=== PATIENT | female | born 1955 | race Caucasian/White ===

== ENCOUNTER 2020-09-04 20:19 | Inpatient (IN) | payer SELFPAY ==
[2020-09-04 21:18] LABS: ALT (SGPT) 15 U/L (8-55); AST (SGOT) 23 U/L (5-34); Albumin 3.1 g/dL (3.4-4.8); Alkaline Phosphatase 253 U/L (40-110); Anion Gap 18 mmol/L (10-20); BUN (Urea Nitrogen) 17 mg/dL (9.8-20.1); Bilirubin, Total 4.3 mg/dL (0.2-1.2); Calc. Creatinine Clearance 0 mL/min (70-130); Calcium 9.2 mg/dL (7.8-10.44); Carbon Dioxide 16 mmol/L (23-31); Chloride 103 mmol/L (98-107); Globulin 2.5 g/dL (2.4-3.5); Glucose 81 mg/dL (80-115); Protein, Total 5.6 g/dL (5.8-8.1); Sodium 134 mmol/L (136-145)
[2020-09-04] MEDS ORDERED: cefTRIAXone\\ROCEPHIN 2 GM VIAL ONE (21:18)
[2020-09-04] MEDS ORDERED: Acetaminophen 500 MG TAB ONE (21:18)
[2020-09-04 21:22] LABS: Hemoglobin 15.2 g/dL (12.0-15.5); Mean Corpuscular HGB CONC 33.3 g/dL (32.0-36.0); Mean Corpuscular Hemoglobin 28.4 pg (27.0-33.0); Mean Corpuscular Volume 85.1 fl (81.6-98.3); Platelet Count 67 10x3/uL (150-450); RBC Distribution Width 13.2 % (11.5-14.5); Red Blood Cell (RBC) Count 5.36 10x6/uL (3.90-5.03)
[2020-09-04 21:28] LABS: Potassium 2.6 mmol/L (3.5-5.1)
[2020-09-04] MEDS ORDERED: Potassium Chloride 20 MEQ TAB ONE (21:44)
[2020-09-04] MEDS ORDERED: Aspirin 325 MG TAB ONE (21:57)
[2020-09-04] MEDS ORDERED: Calcium Carbonate 500 MG ChewTAB PO PRN (22:02)
[2020-09-04] MEDS ORDERED: Ondansetron PF 4 MG/2 ML Vial IVP PRN (22:02)
[2020-09-04] MEDS ORDERED: Senokot S 8.6-50 MG TAB PO PRN (22:02)
[2020-09-04] MEDS: Sodium Chloride 0.9% 1,000 ML IV SCH (23:00)
[2020-09-04 23:43] LABS: Band 30 % (5-11); Lymphocytes 4 % (21-51); Metamyelocyte 1 % (0-0); Monocytes 1 % (0-10)
[2020-09-04 23:57] LABS: Neutrophil 64 % (42-75)
[2020-09-04] MEDS ORDERED: Pantoprazole 40 MG VIAL IVP SCH (23:59)
[2020-09-04] MEDS ORDERED: Cefepime 1 GM in Sodium Chloride 0.9% 100 ML IVPB SCH (23:59)
[2020-09-05] MEDS ORDERED: Potassium Chloride 20 MEQ TAB ONE (00:09)
[2020-09-05] MEDS ORDERED: Cefepime 1 GM VIAL ONE (00:09)
[2020-09-05] MEDS ORDERED: Pantoprazole 40 MG VIAL ONE (00:10)
[2020-09-05 00:11] LABS: Dohle Bodies MODERATE; Toxic Granulation SLIGHT; Vacuoles MODERATE
[2020-09-05 00:12] LABS: Large Platelets MODERATE; Platelet Morphology Comment Appears Decreased; Small Platelets SLIGHT
[2020-09-05 00:13] LABS: MDiff Complete? YES; Manual Diff?? YES
[2020-09-05 00:14] LABS: RBC Morphology Normal
[2020-09-05] MEDS: Potassium Chloride 20 MEQ TAB PO SCH ×4 (00:41→06:31)
[2020-09-05 01:13] LABS: Bilirubin 1+ (Negative); Blood, Urine 150 (Negative); Clarity Slightly Cloudy (Clear); Glucose, Urine (Dipstick) Normal (Negative); Ketone, Urine 5 mg/dL (Negative); Leukocyte 100 (Negative); Nitrite Positive (Negative); Protein, Urine (Dipstick) 100 mg/dl (Neg-Trace)
[2020-09-05] MEDS ORDERED: Albumin 25% 100 ML ONE (01:16)
[2020-09-05 01:24] LABS: Mucous/LPF 1+ LPF (<2+); WBC/HPF 21-50 HPF (0-3)
[2020-09-05 01:25] LABS: Bacteria/HPF 4+ HPF (None Seen)
[2020-09-05] MEDS ORDERED: Albumin 25% 25 GM/100 ML BOT IVPB SCH (01:45)
[2020-09-05 02:07] LABS: Lactic Acid 3.7 mmol/L (0.5-2.2)
[2020-09-05 02:39] VITALS: BMI 35.3
[2020-09-05] MEDS ORDERED: Vancomycin HCl 750 MG in Sodium Chloride 0.9% 250 ML 250 ML IVPB SCH (03:00)
[2020-09-05 04:01] LABS: Lactic Acid 3.5 mmol/L (0.5-2.2)
[2020-09-05 04:17] LABS: ALT (SGPT) 16 U/L (8-55); AST (SGOT) 29 U/L (5-34); Alkaline Phosphatase 90 U/L (40-110); Anion Gap 16 mmol/L (10-20); BUN (Urea Nitrogen) 19 mg/dL (9.8-20.1); Bilirubin, Total 3.2 mg/dL (0.2-1.2); Calc. Creatinine Clearance 57 mL/min (70-130); Carbon Dioxide 14 mmol/L (23-31); Cardiac Risk 4.1 (Less than 4.5); Chloride 108 mmol/L (98-107); Cholesterol 49 mg/dl (< 200 Desired); Globulin 1.9 g/dL (2.4-3.5); Glucose 85 mg/dL (80-115); HDL Cholesterol 12 mg/dL (>60 Neg Risk); LDL Cholesterol, Calculated 20 mg/dL; Magnesium 1.4 mg/dL (1.6-2.6); Protein, Total 4.9 g/dL (5.8-8.1); Sodium 135 mmol/L (136-145); Triglycerides 84 mg/dL (Less than 150)
[2020-09-05 04:22] LABS: Potassium 2.9 mmol/L (3.5-5.1)
[2020-09-05 04:40] LABS: CKMB 3.7 ng/mL (0-6.6)
[2020-09-05 04:57] LABS: Hemoglobin 12.9 g/dL (12.0-15.5); Mean Corpuscular HGB CONC 34.4 g/dL (32.0-36.0); Mean Corpuscular Hemoglobin 29.2 pg (27.0-33.0); Mean Corpuscular Volume 84.8 fl (81.6-98.3); Mean Platelet Volume 11.6 fl (7.4-10.4); Platelet Count 25 10x3/uL (150-450); RBC Distribution Width 13.4 % (11.5-14.5); Red Blood Cell (RBC) Count 4.42 10x6/uL (3.90-5.03); White Blood Cell (WBC) Count 17.8 10x3/uL (3.5-10.5)
[2020-09-05 05:14] LABS: Band 26 % (5-11); Lymphocytes 2 % (21-51); Metamyelocyte 6 % (0-0); Monocytes 4 % (0-10); Myelocyte 1 % (0-0)
[2020-09-05 05:15] LABS: Neutrophil 61 % (42-75)
[2020-09-05 05:16] LABS: Dohle Bodies SLIGHT; Platelet Clumps SLIGHT; Toxic Granulation SLIGHT; Vacuoles MARKED
[2020-09-05 05:17] LABS: Large Platelets SLIGHT; Platelet Morphology Comment Appears Decreased
[2020-09-05 05:25] LABS: MDiff Complete? YES; Manual Diff?? YES; RBC Morphology Normal
[2020-09-05] MEDS ORDERED: Magnesium 2 GM/50 ML 2 GM in Premix Bag 1 BAG IVPB SCH (05:30)
[2020-09-05] MEDS: Meropenem 500 MG in Sodium Chloride 0.9% 100 ML IVPB SCH ×2 (08:23→16:26)
[2020-09-05] MEDS: Pantoprazole 40 MG VIAL IVP SCH ×2 (08:23→20:51)
[2020-09-05] MEDS ORDERED: Cefepime 1 GM in Sodium Chloride 0.9% 100 ML IVPB SCH (09:00)
[2020-09-05] MEDS: Aspirin 81 mg Enteric Coated Tablet PO SCH (09:21)
[2020-09-05 10:32] LABS: Anion Gap 16 mmol/L (10-20)
[2020-09-05] MEDS: Sodium Chloride 0.9% 1,000 ML IV SCH ×2 (12:16→16:50)
[2020-09-05 13:43] LABS: BUN (Urea Nitrogen) 20 mg/dL (9.8-20.1); Calc. Creatinine Clearance 57 mL/min (70-130); Calcium 8.1 mg/dL (7.8-10.44); Carbon Dioxide 17 mmol/L (23-31); Chloride 108 mmol/L (98-107); Glucose 80 mg/dL (80-115); Potassium 4.5 mmol/L (3.5-5.1); Sodium 136 mmol/L (136-145)
[2020-09-05] MEDS ORDERED: Sodium Chloride 0.9% 1,000 ML IV SCH (13:45)
[2020-09-05 15:10] LABS: SARS-CoV-2 PCR by NAA Not Detected (NotDetected)
[2020-09-05] MEDS: Acetaminophen 325 MG TAB PO PRN (16:27)
[2020-09-05] MEDS ORDERED: Iopamidol 15 ML ONE (17:55)
[2020-09-05] MEDS ORDERED: Fentanyl 100 MCG/2 ML VIAL ONE (18:13)
[2020-09-05] MEDS ORDERED: PROPOFOL 20 ML ONE (18:13)
[2020-09-05] MEDS ORDERED: Rocuronium Bromide 10 MG/ML (10ML VIAL) ONE (18:13)
[2020-09-05] MEDS ORDERED: Lidocaine 1% PF 5 ML VIAL ONE (18:13)
[2020-09-05] MEDS ORDERED: ePHEDrine 50 MG/ML VIAL ONE (18:14)
[2020-09-05] MEDS ORDERED: PHENYLEPHRINE-NS 100 MCG/ML 10 ML SYRINGE ONE (18:14)
[2020-09-05] MEDS ORDERED: Glycopyrrolate 0.2 MG/ML 5 ML SYRINGE ONE (18:14)
[2020-09-05] MEDS ORDERED: Dexamethasone 4 mg/ml Vial ONE (18:14)
[2020-09-05] MEDS ORDERED: Ondansetron PF 4 MG/2 ML Vial ONE (18:14)
[2020-09-05] MEDS ORDERED: Morphine 1 ML ONE (18:51)
[2020-09-05] MEDS ORDERED: Metoclopramide HCl 10 MG/2 ML VIAL ONE (19:11)
[2020-09-05] MEDS ORDERED: B & O ONE (19:23)
[2020-09-05] MEDS ORDERED: Midazolam HCl 2 mg/2 ml Vial ONE (19:48)
[2020-09-05] MEDS: Vancomycin HCl 1 GM in Sodium Chloride 0.9% 250 ML 250 ML IVPB SCH (20:51)
[2020-09-06] MEDS: Meropenem 500 MG in Sodium Chloride 0.9% 100 ML IVPB SCH ×3 (00:30→16:05)
[2020-09-06] MEDS: Sodium Chloride 0.9% 1,000 ML IV SCH ×4 (00:30→23:40)
[2020-09-06 03:57] LABS: Hemoglobin 12.2 g/dL (12.0-15.5); Mean Corpuscular HGB CONC 32.1 g/dL (32.0-36.0); Mean Corpuscular Hemoglobin 28.6 pg (27.0-33.0); Mean Corpuscular Volume 89.2 fl (81.6-98.3); Mean Platelet Volume 12.7 fl (7.4-10.4); Platelet Count 55 10x3/uL (150-450); RBC Distribution Width 14.6 % (11.5-14.5); Red Blood Cell (RBC) Count 4.26 10x6/uL (3.90-5.03)
[2020-09-06 04:11] LABS: Anion Gap 15 mmol/L (10-20); BUN (Urea Nitrogen) 23 mg/dL (9.8-20.1); Calc. Creatinine Clearance 70 mL/min (70-130); Calcium 7.8 mg/dL (7.8-10.44); Carbon Dioxide 11 mmol/L (23-31); Chloride 115 mmol/L (98-107); Glucose 73 mg/dL (80-115); Magnesium 1.9 mg/dL (1.6-2.6); Potassium 4.7 mmol/L (3.5-5.1); Sodium 136 mmol/L (136-145)
[2020-09-06 06:48] LABS: Band 32 % (5-11); Lymphocytes 4 % (21-51); Monocytes 4 % (0-10); Neutrophil 60 % (42-75)
[2020-09-06 06:50] LABS: Anisocytosis SLIGHT = 6-15 cells (100X) (0-5/hpf); Microcytosis SLIGHT = 6-15 cells (100X) (0-5/hpf)
[2020-09-06 06:52] LABS: Burr Cells SLIGHT = 2-5 cells (100X) (0-1/hpf); Dohle Bodies MODERATE; Toxic Granulation SLIGHT; Vacuoles MARKED
[2020-09-06 06:53] LABS: Large Platelets MODERATE; Platelet Clumps SLIGHT; Platelet Morphology Comment Appears Decreased
[2020-09-06 06:54] LABS: Manual Diff?? YES
[2020-09-06 06:55] LABS: MDiff Complete? YES
[2020-09-06] MEDS: Aspirin 81 mg Enteric Coated Tablet PO SCH (07:52)
[2020-09-06] MEDS: Pantoprazole 40 MG VIAL IVP SCH ×2 (07:52→19:54)
[2020-09-06] MEDS ORDERED: Trospium 20 MG TAB PO SCH (09:00)
[2020-09-06] MEDS ORDERED: Estrogens, Conjugated 30 GM TUBE TOP SCH (09:45)
[2020-09-06] MEDS: Fluconazole In NaCl,Iso-Osm 400 MG in Premix Bag 1 BAG IVPB SCH (09:51)
[2020-09-06] MEDS: traMADol HCl 50 MG TAB PO PRN ×2 (16:05→23:40)
[2020-09-06] MEDS: Vancomycin HCl 1 GM in Sodium Chloride 0.9% 250 ML 250 ML IVPB SCH (19:54)
[2020-09-06] MEDS: Estrogens, Conjugated 30 GM TUBE TOP SCH (19:55)
[2020-09-06 20:30] LABS: Vancomycin, Trough 10.2 ug/mL
[2020-09-06] MEDS: Acetaminophen 325 MG TAB PO PRN (23:40)
[2020-09-07] MEDS: Meropenem 500 MG in Sodium Chloride 0.9% 100 ML IVPB SCH ×2 (00:23→08:25)
[2020-09-07 03:37] LABS: #Eosinphils 0.1 10x3/uL (0.0-0.5); #Monocytes 0.6 10x3/uL (0.0-1.1); #Neutrophils 8.8 10x3/uL (1.5-8.4); %Basophils 0.4 % (0.0-2.0); %Lymphocytes 11.2 % (18.0-47.0); %Monocytes 5.3 % (0.0-10.0); %Neutrophils 80.4 % (40.0-75.0); Hemoglobin 12.1 g/dL (12.0-15.5); Mean Corpuscular HGB CONC 31.8 g/dL (32.0-36.0); Mean Corpuscular Hemoglobin 28.3 pg (27.0-33.0); Mean Platelet Volume 12.9 fl (7.4-10.4); Platelet Count 54 10x3/uL (150-450); RBC Distribution Width 14.6 % (11.5-14.5); Red Blood Cell (RBC) Count 4.28 10x6/uL (3.90-5.03)
[2020-09-07 04:00] LABS: Anion Gap 12 mmol/L (10-20); BUN (Urea Nitrogen) 24 mg/dL (9.8-20.1); Calc. Creatinine Clearance 85 mL/min (70-130); Carbon Dioxide 14 mmol/L (23-31); Chloride 113 mmol/L (98-107); Potassium 4.1 mmol/L (3.5-5.1); Sodium 135 mmol/L (136-145)
[2020-09-07 04:01] LABS: Glucose 88 mg/dL (80-115)
[2020-09-07] MEDS: Pantoprazole 40 MG VIAL IVP SCH ×2 (08:25→21:10)
[2020-09-07] MEDS: Aspirin 81 mg Enteric Coated Tablet PO SCH (08:26)
[2020-09-07] MEDS: Estrogens, Conjugated 30 GM TUBE TOP SCH ×2 (09:00→21:10)
[2020-09-07] MEDS ORDERED: Vancomycin HCl 1 GM in Sodium Chloride 0.9% 250 ML 250 ML IVPB SCH (09:00)
[2020-09-07] MEDS: cefTRIAXone\\ROCEPHIN 2 GM in Sodium Chloride 0.9% 100 ML IVPB SCH (10:43)
[2020-09-07] MEDS: Fluconazole In NaCl,Iso-Osm 400 MG in Premix Bag 1 BAG IVPB SCH (10:48)
[2020-09-07] MEDS: traMADol HCl 50 MG TAB PO PRN ×2 (12:34→21:10)
[2020-09-07] MEDS: Morphine 4 MG/ML VIAL SLOW IVP PRN ×2 (13:51→18:53)
[2020-09-07] MEDS: Sodium Chloride 0.9% 1,000 ML IV SCH ×2 (13:52→17:18)
[2020-09-07 14:18] LABS: #Basophils 0.1 10x3/uL (0.0-0.2); #Eosinphils 0.1 10x3/uL (0.0-0.5); #Monocytes 0.7 10x3/uL (0.0-1.1); #Neutrophils 11.7 10x3/uL (1.5-8.4); %Basophils 0.5 % (0.0-2.0); %Eosinophils 0.7 % (0.0-6.0); %Lymphocytes 10.5 % (18.0-47.0); %Neutrophils 81.1 % (40.0-75.0); Hemoglobin 13.8 g/dL (12.0-15.5); Mean Corpuscular HGB CONC 32.6 g/dL (32.0-36.0); Mean Corpuscular Hemoglobin 28.3 pg (27.0-33.0); Mean Corpuscular Volume 86.9 fl (81.6-98.3); Mean Platelet Volume 12.5 fl (7.4-10.4); Platelet Count 59 10x3/uL (150-450); RBC Distribution Width 14.6 % (11.5-14.5); Red Blood Cell (RBC) Count 4.87 10x6/uL (3.90-5.03); White Blood Cell (WBC) Count 14.4 10x3/uL (3.5-10.5)
[2020-09-07 14:22] LABS: Anion Gap 10 mmol/L (10-20); BUN (Urea Nitrogen) 21 mg/dL (9.8-20.1); Calc. Creatinine Clearance 89 mL/min (70-130); Calcium 8.4 mg/dL (7.8-10.44); Carbon Dioxide 20 mmol/L (23-31); Chloride 112 mmol/L (98-107); Glucose 103 mg/dL (80-115); Potassium 3.8 mmol/L (3.5-5.1); Sodium 138 mmol/L (136-145)
[2020-09-07] MEDS: Cyclobenzaprine 10 MG TAB PO SCH (21:10)
[2020-09-07] MEDS: Trospium 20 MG TAB PO SCH (21:10)
[2020-09-07] MEDS: Phenazopyridine HCl 97.5 MG TABLET PO SCH (21:10)
[2020-09-08] MEDS: Morphine 4 MG/ML VIAL SLOW IVP PRN (00:40)
[2020-09-08] MEDS: Sodium Chloride 0.9% 1,000 ML IV SCH ×3 (04:59→17:03)
[2020-09-08 05:52] LABS: #Basophils 0.1 10x3/uL (0.0-0.2); #Eosinphils 0.1 10x3/uL (0.0-0.5); #Monocytes 0.7 10x3/uL (0.0-1.1); %Basophils 0.7 % (0.0-2.0); %Eosinophils 1.1 % (0.0-6.0); %Lymphocytes 18.8 % (18.0-47.0); %Monocytes 6.9 % (0.0-10.0); Hemoglobin 12.4 g/dL (12.0-15.5); Mean Corpuscular HGB CONC 32.8 g/dL (32.0-36.0); Mean Corpuscular Hemoglobin 28.3 pg (27.0-33.0); Mean Corpuscular Volume 86.3 fl (81.6-98.3); Mean Platelet Volume 13.8 fl (7.4-10.4); RBC Distribution Width 14.7 % (11.5-14.5); Red Blood Cell (RBC) Count 4.38 10x6/uL (3.90-5.03); White Blood Cell (WBC) Count 10.1 10x3/uL (3.5-10.5)
[2020-09-08 05:53] LABS: Platelet Count 52 10x3/uL (150-450)
[2020-09-08 05:58] LABS: Anion Gap 12 mmol/L (10-20); BUN (Urea Nitrogen) 18 mg/dL (9.8-20.1); Calc. Creatinine Clearance 102 mL/min (70-130); Carbon Dioxide 18 mmol/L (23-31); Chloride 113 mmol/L (98-107); Glucose 70 mg/dL (80-115); Potassium 3.7 mmol/L (3.5-5.1); Sodium 139 mmol/L (136-145)
[2020-09-08 08:36] LABS: Vancomycin, Trough 11.1 ug/mL
[2020-09-08] MEDS: traMADol HCl 50 MG TAB PO PRN (09:55)
[2020-09-08] MEDS: Cyclobenzaprine 10 MG TAB PO SCH ×2 (09:55→13:40)
[2020-09-08] MEDS: Phenazopyridine HCl 97.5 MG TABLET PO SCH ×2 (09:55→13:40)
[2020-09-08] MEDS: Aspirin 81 mg Enteric Coated Tablet PO SCH (09:55)
[2020-09-08] MEDS: Pantoprazole 40 MG VIAL IVP SCH (09:56)
[2020-09-08] MEDS: Trospium 20 MG TAB PO SCH (09:56)
[2020-09-08] MEDS: Estrogens, Conjugated 30 GM TUBE TOP SCH (09:56)
[2020-09-08] MEDS: Fluconazole In NaCl,Iso-Osm 400 MG in Premix Bag 1 BAG IVPB SCH (11:19)
[2020-09-08] MEDS: cefTRIAXone\\ROCEPHIN 2 GM in Sodium Chloride 0.9% 100 ML IVPB SCH (13:40)
[2020-09-08 17:06] VITALS: BP 150/99; TEMP 97.7
[2020-09-12 11:10] LABS: Fungus Stain Final report (.)
== END 2020-09-08 17:38 | disposition home or self-care (01) | DRG 854 ==
LOC: EDBD 20:19 → CSHERS 20:19 → CSHERHOLD 23:39 → CSHICU 09-05 02:14 → CSHTELE 09-07 14:30
PROVIDERS: ADMIT Student in an Organized Health Care Education/Training Program; ATTEND Internal Medicine
PROC: 0T778DZ Dilation of Left Ureter with Intraluminal Device, Via Natural or Artificial Opening Endoscopic (ICD-10-PCS; principal; 2020-09-05)
PROC: BT1FYZZ Fluoroscopy of Left Kidney, Ureter and Bladder using Other Contrast (ICD-10-PCS; 2020-09-05)
DX: A41.51 Sepsis due to Escherichia coli [E. coli] (principal); N17.9 Acute kidney failure, unspecified; E87.2 Acidosis; N13.6 Pyonephrosis; E87.6 Hypokalemia; R65.20 Severe sepsis without septic shock; E86.0 Dehydration; Z20.822 Contact with and (suspected) exposure to COVID-19; G89.4 Chronic pain syndrome; M79.7 Fibromyalgia; R77.8 Other specified abnormalities of plasma proteins; D69.6 Thrombocytopenia, unspecified; E03.9 Hypothyroidism, unspecified; Z79.891 Long term (current) use of opiate analgesic; Z90.710 Acquired absence of both cervix and uterus; Z79.890 Hormone replacement therapy; Z86.16 Personal history of COVID-19
CPT/HCPCS: 0240U; 36415; 36416; 51600; 71045; 74176; 74430; 80048; 80053; 80061; 80202; 81003; 81015; 82553; 83605; 83690; 83735; 83880; 84145; 84484; 85025; 86140; 87040; 87070; 87077; 87086; 87102; 87149; 87186; 87205; 87206; 87635; 93005; 93010; 93306; 94760; 96365; 96367; C9113; J0692; J0696; J1100; J1450; J2185; J2250; J2270; J2405; J2704; J2765; J3010; J3370; J3475; J3490; J7050; P9047; Q9967; U0003; U0005